=== PATIENT | male | born 1955 | race Caucasian/White ===

== ENCOUNTER 2022-11-13 12:59 | Day surgery (SDC) | payer MEDICARE, BC ==
[2022-11-13] VITALS (8 sets, daily range): BP systolic 113–145; BP diastolic 76–87; PULSE 40–49; TEMP 97.5–97.9
[~2022-11-13] VITALS: Ht 185.4 cm; Wt 93.0 kg
[~2022-11-13 12:59] MED LIST: ASPIRIN 81M81 MG/TA2 PO; CARDURA 8MG TAB8 MG PO; FISH OIL 1000MG1 CAP PO; LOPRESSOR 550 MG/TAB PO; MULTIPLE VITAMI1 CAP PO; NATURAL E400 IU PO; PRINIVIL20 MG PO; VITAMIN C500 MG PO; ZOCOR 10MG10 MG PO
[2022-11-13] MEDS ORDERED: PRINIVIL10 MG PO (13:43)
--- NOTE | 2022-11-13 17:00 | NUR ---
1510 PT RETURNED TO BAY 5 FROM PROCEDURE. RECEIVED REPORT FROM MARILYN HATCH. PT IS ALERT AND ORIENTED, ANSWERING QUESTIONS APPROPRIATELY, BREATHING EVEN AND UNLABORED. 1545 ICE WATER PROVIDED TO PT. PT TOLERATED WELL 1605 JELLO PROVIDED TO PT. PT TOLERATED WELL 1628 PT GIVEN CHICKEN BROTH AND MORE JELLO. TOLERATED WELL. 1643 PHYSICIAN DISCHARGE INSTRUCTIONS AND PRINTED PT EDUCATIONAL INFORMATION REVIEWED WITH PT AND HIS BROTHER. QUESTIONS INVITED AND ANSWERED. 1655 PT TO LOBBY VIA WHEEL CHAIR FOR RIDE HOME WITH BROTHER IN [facility]
== END 2022-11-13 17:00 | disposition home or self-care (01) ==
LOC: SDCO 12:59
DX: K80.50 Calculus of bile duct without cholangitis or cholecystitis without obstruction (principal); K31.89 Other diseases of stomach and duodenum; R94.5 Abnormal results of liver function studies; R93.2 Abnormal findings on diagnostic imaging of liver and biliary tract; R17 Unspecified jaundice
CPT/HCPCS: C1769; J2405; J2704; J3010; J7120; Q9967